=== PATIENT | male | born 1995 | race Two or more races ===

== ENCOUNTER 2022-09-19 23:39 | Emergency (ER) | payer SELFPAY ==
[~2022-09-19] VITALS: Ht 172.7 cm; Wt 86.4 kg
[2022-09-19 23:41] VITALS: BP 128/73
[2022-09-20 00:10] LABS: COVID AG,FIA SOURCE NASAL SWAB
[2022-09-20 00:32] LABS: INFLUENZA TYPE A NEGATIVE FOR TYPE A (NEGATIVE); INFLUENZA TYPE B NEGATIVE FOR TYPE B (NEGATIVE)
== END 2022-09-20 02:17 | disposition left against medical advice (07) ==
LOC: EMS 23:39
DX: R51.9 Headache, unspecified (principal); J02.9 Acute pharyngitis, unspecified; Z53.21 Procedure and treatment not carried out due to patient leaving prior to being seen by health care provider
CPT/HCPCS: 87804